=== PATIENT | female | born 1955 | race African-American/Black ===

== ENCOUNTER 2020-01-14 14:12 | Emergency (ER) | payer MEDICARE, OTHER ==
[~2020-01-14] VITALS: Ht 170.2 cm; Wt 63.5 kg
[2020-01-14] MEDS ORDERED: ASPirin 81 mg TAB PO ONE (14:30)
[2020-01-14 15:25] LABS: Basophils # (auto) 0.1 10 ^3/uL (0-0.2); Basophils % (auto) 0.6 % (0.0-2.0); Eosinophils # (auto) 0 10 ^3/uL (0-0.8); Eosinophils % (auto) 0.5 % (0.0-7.0); Hematocrit 48.8 % (36.0-46.0); Hemoglobin 15.9 g/dL (12.2-16.2); Lymphocytes # (auto) 3.3 10 ^3/uL (0.4-5.4); Lymphocytes % (auto) 32.4 % (10.0-50.0); Mean Corpuscular Hemoglobin 28.9 pg (28.0-32.0); Mean Corpuscular Hgb Conc. 32.6 g/dL (32.0-36.0); Mean Corpuscular Volume 88.7 fL (80.0-100.0); Monocytes # (auto) 0.7 10 ^3/uL (0-1.3); Monocytes % (auto) 7.3 % (0.0-12.0); Neutrophils % (auto) 59.2 % (37.0-80.0); Nucleated Red Blood Cells % 0.1 %; Platelet Count (auto) 228 10^3/uL (140-450); Red Cell Distribution Width 14.3 % (11.8-14.3); White Blood Cell 10.1 10^3/uL (4.4-10.8)
[2020-01-14 15:40] LABS: Alanine Aminotransferase 43 U/L (13-56); Albumin 4.1 g/dL (3.4-5.0); Anion Gap 8 (5-15); Aspartate Aminotransferase 43 U/L (15-37); BUN/Creatinine Ratio 17.9; Blood Urea Nitrogen 15 mg/dL (7-18); Calcium 11.2 mg/dL (8.5-10.1); Carbon Dioxide 26 mmol/L (21-32); Chloride 100 mmol/L (98-107); GFR African American 87 mL/min; GFR Non-African American 72 mL/min; Glucose 98 mg/dL (74-106); Potassium 3.7 mmol/L (3.5-5.1); Sodium 134 mmol/L (136-145)
[2020-01-14 15:50] LABS: Alkaline Phosphatase 76 U/L (45-117); Bilirubin, Total 0.5 mg/dL (0.2-1.0); Total Protein 8.1 g/dL (6.4-8.2)
[2020-01-14 16:53] VITALS: BP 154/104
== END 2020-01-14 17:04 | disposition home or self-care (01) ==
LOC: ER 14:12
DX: K29.70 Gastritis, unspecified, without bleeding (principal); R07.89 Other chest pain; F41.9 Anxiety disorder, unspecified; F17.210 Nicotine dependence, cigarettes, uncomplicated; Z88.0 Allergy status to penicillin; Z88.5 Allergy status to narcotic agent
CPT/HCPCS: 36415; 71046; 80053; 84484; 85025; 93005

== ENCOUNTER 2020-06-02 12:54 | Emergency (ER) | payer MEDICARE ==
[~2020-06-02] VITALS: Ht 170.2 cm; Wt 61.2 kg
[2020-06-02 13:26] VITALS: BP 147/100
[2020-06-02] MEDS ORDERED: SUMAtriptan SUCCINATE 6 MG/0.5 ML VL SC ONE (14:30)
== END 2020-06-02 15:15 | disposition home or self-care (01) ==
LOC: ER 12:54
DX: G43.909 Migraine, unspecified, not intractable, without status migrainosus (principal)
CPT/HCPCS: 70450; 96372; 99284; J3030

== ENCOUNTER 2022-09-20 16:05 | Emergency (ER) | payer MEDICARE ==
[~2022-09-20] VITALS: Ht 167.6 cm; Wt 71.0 kg
[2022-09-20] MEDS ORDERED: AML5T PO (17:14)
[2022-09-20] MEDS ORDERED: amLODIPine BESYLATE 5 MG TAB PO ONE (17:15)
[2022-09-20 18:27] VITALS: BP 200/110
== END 2022-09-20 18:29 | disposition home or self-care (01) ==
LOC: ER 16:05
DX: I10 Essential (primary) hypertension (principal); R51.9 Headache, unspecified; F17.210 Nicotine dependence, cigarettes, uncomplicated; Z88.0 Allergy status to penicillin; Z88.5 Allergy status to narcotic agent
CPT/HCPCS: 93005

== ENCOUNTER 2022-09-23 07:04 | Emergency (ER) | payer MEDICARE, MEDICAID ==
[~2022-09-23] VITALS: Ht 170.2 cm; Wt 70.0 kg
[~2022-09-23 07:04] MED LIST: AML5T PO
[2022-09-23] MEDS ORDERED: ACETAMINOPHEN 500 MG TAB PO ONE (08:15)
[2022-09-23] MEDS ORDERED: ACET1CAP14 PO (08:26)
[2022-09-23] MEDS ORDERED: AZITTAB PO (08:26)
[2022-09-23] MEDS ORDERED: BENZ1LOZ3 MT (08:26)
[2022-09-23 08:43] VITALS: BP 138/84
== END 2022-09-23 08:45 | disposition home or self-care (01) ==
LOC: ER 07:04
DX: H66.92 Otitis media, unspecified, left ear (principal); I10 Essential (primary) hypertension; Z88.0 Allergy status to penicillin; Z88.5 Allergy status to narcotic agent; Z20.822 Contact with and (suspected) exposure to COVID-19
CPT/HCPCS: 36415; 87426; 87804

== ENCOUNTER 2022-10-03 09:41 | Emergency (ER) | payer MEDICARE, MEDICAID ==
[~2022-10-03] VITALS: Ht 170.2 cm; Wt 71.5 kg
[~2022-10-03 09:41] MED LIST changes: +ACET1CAP14 PO; +AZITTAB PO; +BENZ1LOZ3 MT
[2022-10-03] MEDS ORDERED: DexAMETHasone SOD PHOS 10MG/1ML VIAL INJ IM ONE (11:45)
[2022-10-03] MEDS ORDERED: KETOROLAC TROMETH 60MG/2ML VIAL IM ONE (11:45)
[2022-10-03 14:00] VITALS: BP 168/103
[2022-10-03] MEDS ORDERED: IBUP800T26 PO (14:30)
[2022-10-03] MEDS ORDERED: ACET-1158 PO (14:30)
[2022-10-03] MEDS ORDERED: PENICILLIN G BENZ 1200000 UNITS/2 ML SYRG IM ONE (14:30)
[2022-10-03] MEDS ORDERED: AZITTAB PO (14:59)
== END 2022-10-03 15:25 | disposition home or self-care (01) ==
LOC: ER 09:41
DX: J02.0 Streptococcal pharyngitis (principal); I10 Essential (primary) hypertension; F17.210 Nicotine dependence, cigarettes, uncomplicated; Z79.2 Long term (current) use of antibiotics; Z79.899 Other long term (current) drug therapy; Z88.0 Allergy status to penicillin; Z88.5 Allergy status to narcotic agent
CPT/HCPCS: 87880; 96372; 99284; J0561; J1100; J1885

== ENCOUNTER → 2022-10-18 | Outpatient (CLI) | payer OTHER, MEDICAID ==
[~2022-10-18] MED LIST changes: +ACET-1158 PO; +IBUP800T26 PO
[2022-10-18 10:10] LABS: Urine Blood Negative /uL (Negative); Urine Specific Gravity 1.014 (1.001-1.035)
[2022-10-18 10:39] LABS: Albumin 3.6 g/dL (3.4-5.0)
[2022-10-18 10:46] LABS: Basophils # (auto) 0.1 10 ^3/uL (0-0.2); Basophils % (auto) 0.6 % (0.0-2.0); Eosinophils # (auto) 0.1 10 ^3/uL (0-0.8); Eosinophils % (auto) 1.1 % (0.0-7.0); Hemoglobin 14.2 g/dL (12.2-16.2); Lymphocytes # (auto) 4.2 10 ^3/uL (0.4-5.4); Lymphocytes % (auto) 46.9 % (10.0-50.0); Mean Corpuscular Hemoglobin 28.6 pg (28.0-32.0); Mean Corpuscular Hgb Conc. 33.1 g/dL (32.0-36.0); Mean Corpuscular Volume 86.3 fL (80.0-100.0); Monocytes # (auto) 0.5 10 ^3/uL (0-1.3); Monocytes % (auto) 5.6 % (0.0-12.0); Neutrophils # (auto) 4.1 10 ^3/uL (1.6-8.6); Neutrophils % (auto) 45.8 % (37.0-80.0); Nucleated Red Blood Cells % 0.1 %; Red Blood Cells 4.98 10^6/uL (4.0-5.20); Red Cell Distribution Width 14.5 % (11.8-14.3)
[2022-10-18 11:00] LABS: BUN/Creatinine Ratio 18.8 (10.0-20.0); Bilirubin, Total 0.3 mg/dL (0.2-1.0); Calcium 10.5 mg/dL (8.5-10.1); Total Protein 7.9 g/dL (6.4-8.2)
== END | disposition home or self-care (01) ==
LOC: LAB 09:52
PROVIDERS: ATTEND Internal Medicine
DX: Z00.00 Encounter for general adult medical examination without abnormal findings (principal); I10 Essential (primary) hypertension
CPT/HCPCS: 36415; 80053; 80061; 81003; 83036; 84439; 84443; 85025

== ENCOUNTER → 2022-11-07 | Outpatient (CLI) | payer OTHER, MEDICAID | END | disposition home or self-care (01) | LOC: LAB 12:49 | PROVIDERS: ATTEND Internal Medicine | DX: E83.50 Unspecified disorder of calcium metabolism (principal) | CPT/HCPCS: 83970 ==